=== PATIENT | male | born 1980 | race Caucasian/White ===

== ENCOUNTER → 2025-05-11 08:48 | Outpatient (CLI) | payer OTHER, SELFPAY ==
[2025-05-11 09:46] LABS: Add Manual Diff / Slide Review NO; Hematocrit 44.4 % (41-53); Hemoglobin 15.5 g/dL (13.5-17.5); Lymphocytes Absolute Auto 1600 /uL (1100-4500); Mean Corpuscular HGB Conc 34.9 % (30-36); Mean Corpuscular Hemoglobin 30.2 PG (26-34); Mean Corpuscular Volume 86.7 fL (80-100); Platelet Count 290 X10^3/uL (150-400)
[2025-05-11 11:12] LABS: Alanine Aminotransferase 10 IU/L (<50); Albumin 4.9 g/dL (3.5-5.0); Albumin Globulin Ratio 1.4 (1.0-2.8); Alkaline Phosphatase 78 U/L (38-126); Blood Urea Nitrogen 13 mg/dL (9-20); Calcium 9.5 mg/dL (8.4-10.2); Carbon Dioxide 27 mmol/L (22-32); Chloride 99 mmol/L (98-107); Cholesterol 229 mg/dL (140-199); Estimated Glomerular Filt Rate > 60 mL/min (>60); Globulin 3.5 g/dL (1.7-4.1); Glucose 98 mg/dL (70-99); HDL Cholesterol 49 mg/dL (40-60); HEMOLYSIS < 15 (0-50); Potassium 4.5 mmol/L (3.4-5.1); Sodium 138 mmol/L (137-145); Total Protein 8.4 g/dL (6.3-8.2); Triglycerides 123 mg/dL (35-150)
== END ==
PROVIDERS: PCP Family Medicine; Referring Provider Family Medicine; Visit Provider Family Medicine
DX: Z00.00 Encounter for general adult medical examination without abnormal findings (principal)
CPT/HCPCS: 36415; 80053; 80061; 85025

== ENCOUNTER 2025-05-23 10:49 | Day surgery (SDC) | payer BC, OTHER, SELFPAY ==
[2025-05-17 11:45] VITALS: BMI 24.0
--- NOTE | 2025-05-23 | PATH_ITS ---
[facility] Accession Number: [id number] No. of containers..01 Tissue . 01 Material submitted: . scalp - RIGHT SCALP LIPOMA . 01 Diagnosis: RIGHT SCALP, EXCISION: Mature fibroadipose tissue, consistent with lipoma TLI 05/30/2025 1722 Local . 01 Electronically signed: . Deshawn Zamora MD, Pathologist NPI- [id number] . 01 Gross description: . Received is one formalin-filled container labeled with the patient's name and labeled Rt. scalp lipoma, are four fragments of yellow-pablo soft tissue which range in size from 0.5 x 0.4 x 0.4 cm to 2.0 x 1.5 x 1.5 cm. The specimen is inked blue. Three transportation services representative sections are submitted in cassette A1. ([id number]) /LAUREN 05/28/2025 2251 Local . 01 Pathologist provided ICD-10: D17.0 . 01 CPT . 935115 Specimen Comment: A courtesy copy of this report has been sent to [facility] Pathology Performed at: [address] [address], [place], [place] [id number] MD Juancho Palacios MD Phone: [phone]
--- NOTE | 2025-05-23 06:07 | PM.PREOP ---
Pre-operative Note Interval Note History & Physical reviewed/Exam performed by Physician: Yes Changes to H&P: No ASA Class (for procedural sedation): I
[2025-05-23 11:24] VITALS: BP 127/82; PULSE 57; RESP 16; TEMP 36.3; O2SAT 98; BMI 23.7
[2025-05-23] MEDS: LACTATED RINGERS 1,000 ML 42 ML IV (11:30)
[2025-05-23] MEDS: ACETAMINOPHEN 325 MG TABLET 975 MG PO (11:32)
[2025-05-23] MEDS: SODIUM BICARB IV (12:28)
[2025-05-23] MEDS: WATER FOR INJECTION STERILE IV (12:28)
--- NOTE | 2025-05-23 12:32 | SUR.OPER ---
Supine on padded OR bed, head on pillow turned to left, arms secured on padded arm boards at <90 degrees abduction, legs uncrossed, safety belt at thigh.
[2025-05-23 12:40] VITALS: BP 103/70; PULSE 54; RESP 12; TEMP 37.2; O2SAT 95
--- NOTE | 2025-05-23 12:45 | P.OP_ITS ---
Operative Date/Time/Diagnoses Date of procedure: 05/23/25 Time of procedure: 12:45 Pre-op diagnosis: Scalp mass posterior to right ear Post-op diagnosis: same Procedure & Clinicians Procedure: Excision scalp mass posteroir to right ear Same procedure(s) as scheduled: Yes Indications: 45yo M, scalp mass behind right ear, increasing in size Surgeon: Ulices Morales Assisted?: No Anesthesia Type: MAC +/- Operative Notes Findings: Lipomatous character, however, adherent to surrounding tissues, not typical plane of unilobular lipoma Closure Type: primary Specimen(s): other Applied: none Estimated Blood Loss (mL): 5 Blood products transfused: none Procedure in detail: After informed consent and satisfactory sedation, the area behind the right ear was prepped and draped in the usual sterile manner. Surgical time-out was perfo rmed with all team members in agreement. I fashioned the incision with a surgical marker along Abdulaziz's lines to maximize cosmetic healing. I infiltrated the skin and subcutaneous tissues with buffered 0.5% Marcaine with epinephrine, total of 10 cc was used. The skin incision was made with a 15 blade and continued through the skin and subcutaneous tissues. The mass measured 3.5 cm in length. It was not multilobulated however it was densely adherent to the surrounding subcutaneous tissues and fascia. I used cautery to divide the dense adhesions around the lesion. This did not have the character of a typical unilobular lipoma inside a defined capsule. The lesion was completely removed. The specimen was sent for permanent pathology. Hemostasis was achieved with cautery. The subcutaneous space was closed with 3-0 Vicryl interrupted. The skin incision was closed using 4-0 Monocryl in a subcuticular manner. Dermabond glue was applied as a final dressing. The estimated blood loss was minimal. The instrument, sponge and needle counts were all correct x2. The patient tolerated the procedure well and was transported to the recovery area in stable condition. Complications: none Post-operative Condition: stable Disposition: PACU Plan for aftercare: PACU then home
[2025-05-23 12:46] VITALS: BP 108/75; PULSE 52; RESP 17; TEMP 37.1; O2SAT 96
[2025-05-23 12:59] VITALS: BP 121/87; PULSE 52; RESP 14; TEMP 36.9; O2SAT 98
== END 2025-05-23 13:18 | disposition home or self-care (01) ==
PROVIDERS: PCP Family Medicine; Referring Provider Surgery; Visit Provider Surgery
DX: D17.0 Benign lipomatous neoplasm of skin and subcutaneous tissue of head, face and neck (principal)
CPT/HCPCS: 11424; A4216; J1100; J1885; J2250; J2405; J2704; J3010; J7120